=== PATIENT | male | born 1965 | race Caucasian/White ===

== ENCOUNTER 2021-06-23 18:48 | Inpatient (IN) | payer MEDICAID ==
[~2021-06-23] VITALS: Ht 177.8 cm; Wt 100.0 kg
[2021-06-23 20:19] LABS: BASOPHILS % (AUTO) 0.3 % (0-1); EOSINOPHILS % (AUTO) 0.3 % (0-6); HEMATOCRIT 49.7 % (42.0-52.0); HEMOGLOBIN 16.9 g/dl (14.0-17.9); LYMPHOCYTES # (AUTO) 0.8 X10'3 (1.1-4.8); LYMPHOCYTES % (AUTO) 11.4 % (21-51); MEAN CORPUSCULAR HEMOGLOBIN 30.6 PG (27.0-31.0); MEAN CORPUSCULAR VOLUME 90.1 FL (78-98); MEAN PLATELET VOLUME 7.1 FL (7.4-10.4); MONOCYTES # (AUTO) 0.5 X10'3 (0-0.9); MONOCYTES % (AUTO) 6.6 % (2-12); NEUTROPHILS # (AUTO) 5.6 X10'3 (1.8-7.7); NEUTROPHILS % (AUTO) 81.4 % (42-75); PLATELET COUNT 353 X10'3 (140-440); RED BLOOD COUNT 5.52 X10'6 (4.70-6.10); RED CELL DISTRIBUTION WIDTH 14.3 % (11.5-14.5); WHITE BLOOD COUNT 6.8 X10'3 (4.5-11.0)
[2021-06-23 20:33] LABS: ALANINE AMINOTRANSFERASE 41 U/L (12-78); ALBUMIN/GLOBULIN RATIO 0.8 (1.1-1.5); ALKALINE PHOSPHATASE 136 IU/L (46-116); ANION GAP 13 (8-16); ASPARTATE AMINO TRANSFERASE 31 U/L (10-37); BILIRUBIN,TOTAL 0.6 MG/DL (0.1-1.0); BLOOD UREA NITROGEN 23 MG/DL (7-18); BUN/CREATININE RATIO 28.4 (5.4-32.0); CALCIUM 9.2 MG/DL (8.5-10.1); CHLORIDE 101 MMOL/L (99-107); CREATININE 0.81 MG/DL (0.60-1.10); GLUCOSE 148 MG/DL (70-104); POTASSIUM 3.9 MMOL/L (3.5-5.1); SODIUM 137 MMOL/L (135-145); TOTAL CARBON DIOXIDE 22.7 MMOL/L (24-32); eGFR > 90 ML/MIN
[2021-06-24] MEDS ORDERED: normal saline 1000ml 1,000 ML IV ONE (00:25)
[2021-06-24] MEDS ORDERED: diphenhydrAMINE 50 mg/ml inj IV PRN (00:55)
[2021-06-24] MEDS ORDERED: HYDROmorphone inj. 0.5 MG/0.5 ML DISP.SYRIN IV PRN (00:55)
[2021-06-24] MEDS ORDERED: HYDROcodone/acetaminophen 5mg/325mg tablet PO PRN (00:55)
[2021-06-24] MEDS ORDERED: magnesium hydroxide 30ml (MOM) UD suspension PO PRN (00:55)
[2021-06-24] MEDS ORDERED: diphenhydrAMINE 25mg capsule PO PRN (00:55)
[2021-06-24] MEDS ORDERED: bisacodyl 10mg suppository rectal RC PRN (00:55)
[2021-06-24] MEDS ORDERED: HYDROcodone/acetaminophen 10/325mg tab PO PRN (00:55)
[2021-06-24] MEDS: normal saline 1000ml 1,000 ML IV SCH ×3 (00:55→19:32)
[2021-06-24] MEDS ORDERED: ondansetron/PF 4mg/2ml inj IV PRN (00:55)
[2021-06-24] MEDS ORDERED: ondansetron 4mg rapidly disintigrating tab PO PRN (00:55)
[2021-06-24] MEDS ORDERED: acetaminophen 650mg rectal suppository RC PRN (00:55)
[2021-06-24] MEDS ORDERED: morphine 2 MG/ML inj. syringe IV PRN ×2 (00:55)
[2021-06-24] MEDS ORDERED: acetaminophen 325mg tablet PO PRN (00:55)
[2021-06-24] MEDS ORDERED: mag hydrox/Alum hydrox/simeth 30ml oral suspension PO PRN (00:55)
[2021-06-24 01:14] LABS: APTT 32 SECONDS (22-32)
[2021-06-24] MEDS ORDERED: NO HOME MEDS (01:16)
[2021-06-24 01:20] LABS: HEMOGLOBIN A1C 5.8 % (4.5-6.2)
[2021-06-24 01:28] LABS: MAGNESIUM 2.4 MG/DL (1.5-2.4)
[2021-06-24] MEDS ORDERED: pantoprazole 40MG/NS 100ML BAG 100 ML IV SCH (08:00)
[2021-06-24] MEDS: docusate sod 100mg capsule PO SCH ×2 (08:00→19:31)
[2021-06-24] MEDS ORDERED: magnesium 4gm in 100ml NS 100 ML IV PRN (09:40)
[2021-06-24] MEDS ORDERED: potassium Cl 20 mEq SR tablet PO PRN ×2 (09:40)
[2021-06-24] MEDS ORDERED: potassium CL 10mEq/100ml bag 100 ML IV PRN (09:40)
[2021-06-24] MEDS ORDERED: magnesium Cl slow-release 64mg tablet PO PRN (09:40)
[2021-06-24 10:00] VITALS: BP 128/76
[2021-06-24 18:00] VITALS: BP 156/99
--- NOTE | 2021-06-24 18:09 | NUR ---
Problems reprioritized. Patient report given, questions answered & plan of care reviewed with Betzaida GALINDO.
--- NOTE | 2021-06-24 18:52 | NUR ---
Patient in room [facility]. I have received report from Ban GALINDO and had the opportunity to ask questions and assume patient care.
[2021-06-24] MEDS ORDERED: K and/or MAG REPLACEMENT MC SCH (20:00)
--- NOTE | 2021-06-24 20:02 | NUR ---
Pt wanting to leave AMA, states that he feels better no nausea or pain. Education provided to pt on importance of staying to make sure his bowel obstxn has resolved. Pt also educated about the possible risks with him deciding to leave AMA. Pt also advised to follow up if his symptoms get worse. Hospitalist called and notified.
--- NOTE | 2021-06-24 20:17 | NUR ---
Pt leaving AMA. IV discontinued. aware. Pt walked down with nurses aide, pt had all of his belongings with him.
[2021-06-24] MEDS ORDERED: temazepam 15mg capsule PO PRN (21:00)
== END 2021-06-24 20:17 | disposition left against medical advice (07) | DRG 247 ==
LOC: ER 18:50 → UNDOADMIN 06-24 00:57 → ED HOLD 06-24 00:57 → ORTHO 4S 06-24 07:22 → ED HOLD 06-24 07:22
PROVIDERS: ADMIT Family Medicine; ATTEND Family Medicine
PROC: 0D9670Z Drainage of Stomach with Drainage Device, Via Natural or Artificial Opening (ICD-10-PCS; principal; 2021-06-24)
DX: K56.609 Unspecified intestinal obstruction, unspecified as to partial versus complete obstruction (principal); I10 Essential (primary) hypertension; Z20.822 Contact with and (suspected) exposure to COVID-19; Z53.29 Procedure and treatment not carried out because of patient's decision for other reasons; K40.20 Bilateral inguinal hernia, without obstruction or gangrene, not specified as recurrent; K42.9 Umbilical hernia without obstruction or gangrene
CPT/HCPCS: 36415; 74176; 80053; 83036; 83690; 83735; 83880; 84100; 85025; 85610; 85730; 87635; 96365; 99285; C9113; G0378; J7030

== ENCOUNTER 2021-11-04 13:31 | Emergency (ER) | payer MEDICAID ==
[~2021-11-04] VITALS: Ht 177.8 cm; Wt 81.8 kg
[~2021-11-04 13:31] MED LIST: NO HOME MEDS
[2021-11-04 13:36] VITALS: BP 134/82
[2021-11-04] MEDS ORDERED: TETanus/Pertussis (Acell)/Diphther VAC/PF (Tdap-Adult) 0.5ml syringe IMVAC ONE (16:00)
[2021-11-04] MEDS ORDERED: ibuprofen 200mg tablet PO ONE (16:00)
== END 2021-11-04 16:38 | disposition home or self-care (01) ==
LOC: ER 13:31
DX: S61.011A Laceration without foreign body of right thumb without damage to nail, initial encounter (principal); S00.03XA Contusion of scalp, initial encounter; M25.512 Pain in left shoulder; Z85.9 Personal history of malignant neoplasm, unspecified; Z20.3 Contact with and (suspected) exposure to rabies; W01.0XXA Fall on same level from slipping, tripping and stumbling without subsequent striking against object, initial encounter; Y93.89 Activity, other specified; Y92.89 Other specified places as the place of occurrence of the external cause; Y99.8 Other external cause status
CPT/HCPCS: 12001; 73010; 73030; 90471; 90715; 99284

== ENCOUNTER 2022-01-31 14:18 | Emergency (ER) | payer MEDICAID ==
[~2022-01-31] VITALS: Ht 177.8 cm; Wt 84.1 kg
[2022-01-31 15:20] VITALS: BP 166/112
[2022-01-31] MEDS ORDERED: SULF1TAB49 PO (16:41)
[2022-01-31] MEDS ORDERED: LIDOcaine 1% 30ml preserv. free vial IJ ONE (17:15)
[2022-01-31] MEDS ORDERED: sulfamethoxazole/trimethoprim DS (800/160mg) tablet PO ONE (17:35)
== END 2022-01-31 17:51 | disposition home or self-care (01) ==
LOC: ER 14:19
DX: L03.012 Cellulitis of left finger (principal); M79.645 Pain in left finger(s)
CPT/HCPCS: 26010; 73130; 99283

== ENCOUNTER 2022-10-21 22:42 | Emergency (ER) | payer MEDICAID, OTHER ==
[~2022-10-21] VITALS: Ht 175.3 cm; Wt 84.1 kg
[2022-10-21 23:11] VITALS: TEMP 98.3
[2022-10-21] MEDS ORDERED: ketorolac tromethamine 15mg/ml inj. IM ONE (23:15)
[2022-10-21] MEDS ORDERED: acetaminophen 325mg tablet PO ONE (23:15)
[2022-10-21 23:32] VITALS: BP 132/80; PULSE 75; RESP 16; O2SAT 97
== END 2022-10-21 23:30 ==
LOC: ER 22:43
DX: K40.90 Unilateral inguinal hernia, without obstruction or gangrene, not specified as recurrent (principal); Z79.899 Other long term (current) drug therapy
CPT/HCPCS: 96372; 99283; J1885